=== PATIENT | female | born 1965 | race Caucasian/White ===

== ENCOUNTER 2019-01-18 13:23 | Day surgery (SDC) | payer OTHER, BC ==
[2019-01-18] MEDS ORDERED: hydrALAzine 20 MG INJ IV (16:00)
[2019-01-18] MEDS ORDERED: LABETALOL HCL 20MG INJ IV (16:00)
[2019-01-18] MEDS ORDERED: ONDANSETRON 4 MG INJ IV (16:00)
[2019-01-18] MEDS ORDERED: PROPOFOL 60 ML (17:22)
[2019-01-18] MEDS ORDERED: LIDOCAINE 2% (SDV) 5 ML INJ (17:22)
[2019-01-18] MEDS ORDERED: EPHEDrine 25 MG/5 ML SYG (17:53)
== END 2019-01-18 18:52 | disposition home or self-care (01) ==
LOC: GIL 13:23
DX: Z12.11 Encounter for screening for malignant neoplasm of colon (principal); K64.8 Other hemorrhoids; I10 Essential (primary) hypertension; J45.909 Unspecified asthma, uncomplicated; Z79.82 Long term (current) use of aspirin
CPT/HCPCS: 45378; 88305